=== PATIENT | female | born 1930 | race Caucasian/White ===

== ENCOUNTER 2017-11-25 15:04 | Inpatient (IN) | payer OTHER ==
[~2017-11-25] VITALS: Ht 165.1 cm; Wt 78.2 kg
--- NOTE | ~2017-11-25 | EKG ---
[address] [address] ELECTROCARDIOGRAM REPORT Name: LEISA BRADFORD Room #: 219-P ADM IN M.R.#: [id number] Admission: 11/25/17 Attend Phys: Zachery Bennett MD Discharge: Date of : [birth year] Report #: [id number] THIS REPORT FOR: //name// [facility] Test Date: 2017-11-25 Test Time: 17:02:13 Pat Name: LEISALAYO BRADFORD Department: Room: 219 Gender: F Certified Athletic Trainer: Maia TREJO : 1930 Requested By: Meaghan Reno Order Number: [id number] MD: Danny Younger Measurements Intervals [place] Rate: 61 P: 51 PA: 67 QRS: -54 QRSD: 176 T: 127 QT: 577 QTc: 582 Interpretive Statements Sinus rhythm with complete heart block Ventricular bigeminy Left bundle branch block No previous ECG available for comparison Electronically Signed On 11-25-2017 17:39:02 [employer]ILDL[employer] MANAGER by Danny Younger [email or web address] <ELECTRONICALLY SIGNED> By: Danny Younger MD, [facility] 11/25/17 1739 170 01 Danny Younger MD, [facility] /EPI
--- NOTE | ~2017-11-25 | 2DMMODE ---
[facility] [address] [place] [address] 2 D/M-MODE ECHOCARDIOGRAM Name: LEISA BRADFORD Room #: 219-P ADM IN M.R.#: [id number] Admission: 11/25/17 Attend Phys: Zachery Bennett Discharge: Date of : [birth year] Date of Service: 11/26/17 0908 Report #: [id number] THIS REPORT FOR: //name// APPROVED REPORT Study performed: 11/26/2017 07:42:14 EXAM: Comprehensive 2D, Doppler, and color-flow Echocardiogram Patient Location: Bedside Room #: 219 Status: routine BSA: 1.54 BP: 100/59 mmHg Other Information Study Quality: Good Indications Congestive Heart Failure Hypertension/HDD Complete heart block 2D Dimensions RVDd: 35.56 mm LVEF(%): 46.38 (>50%) IVSd: 8.51 (7-11mm) LVOT Diam: 19.83 (18-24mm) LVDd: 44.23 mm PWd: 9.61 (7-11mm) Ascending Ao: 38.24 (22-36mm) LVDs: 34.05 (25-40mm) Aortic Root: 31.34 mm IVC: 25.00 mm Chaudhari's LVEF: 46.38 % Volumes Left Atrial Volume (Systole) Single Plane 4CH: 54.54 mL Single Plane 2CH: 40.26 mL LA ESV Index: 33.00 mL/m2 Aortic Valve AoV Peak Nathaniel.: 2.45 m/s AO Peak Gr.: 24.08 mmHg LVOT Max P.64 mmHg AO Mean Gr.: 8.00 mmHg LVOT Mean P.39 mmHg AO V2 Mean: 1.25 m/s LVOT Max V: 0.95 m/s AO V2 VTI: 53.19 cm LVOT Mean V: 0.52 m/s FANNIE (VTI): 1.38 cm2 LVOT V1 VTI: 23.85 cm FANNIE Vmax: 1.20 cm2 [facility] [address] [place] [address] 2 D/M-MODE ECHOCARDIOGRAM Name: LEISA BRADFORD Room #: 219-P [facility].#: [id number] Admission: 11/25/17 Attend Phys: Zachery Bennett Discharge: Date of : [birth year] Date of Service: 11/26/17 0908 Report #: [id number] Vmax: 4.57 m/s SV (LVOT): 73.62 mL AI [place]: 1.67 m/s2 AI PHT: 793.37 ms Mitral Valve E/A Ratio: 0.5 MV Decel. Time: 128.84 ms MV E Max Nathaniel.: 0.53 m/s MV A Nathaniel.: 0.98 m/s MV PHT: 37.36 ms IVRT: 133.79 ms Pulmonary Valve PV Peak Nathaniel.: 0.92 m/s PV Peak Gr.: 3.35 mmHg Pulmonary Vein P Vein S: 0.29 m/s P Vein A: 0.42 m/s P Vein D: 0.36 m/s P Vein A Dur.: 179.9 msec P Vein S/D Ratio: 0.81 Tricuspid Valve TR Peak Nathaniel.: 2.93 m/s RAP Estimate: 10.00 mmHg TR Peak Gr.: 34.23 mmHg PA Pressure: 44.00 mmHg Left Ventricle The left ventricle is normal size. There is normal left ventricular wall thickness. Left ventricular systolic function is mildly decreased (complete heart block, HR 30) LVEF is 45%. Unable to assess Right Ventricle The right ventricle is normal size. The right ventricular systolic function is normal. Atria Left atrium is mildly dilated. Right atrium is mildly dilated. Aortic Valve The aortic valve is moderately calcified Moderate aortic regurgitation. There is mild valvular aortic stenosis. Calculated aortic valve area is 1.4 cm2 with maximum pressure gradient of 24 mmHg and mean pressure gradient of 8 mmHg. Mitral Valve [facility] [address] [place] [address] 2 D/M-MODE ECHOCARDIOGRAM Name: LEISA BRADFORD Room #: 219-P ADM IN M.R.#: [id number] Admission: 11/25/17 Attend Phys: Zachery Bennett Discharge: Date of : [birth year] Date of Service: 11/26/17 0908 Report #: [id number] Mitral valve leaflets are mildly thickened. Difficult to assess. Probably moderate insufficiency No evidence of mitral valve stenosis. Tricuspid Valve The tricuspid valve is normal in structure. Moderate tricuspid regurgitation. PAP is estimated at 44 mmHg. Pulmonic Valve The pulmonary valve is normal in structure. Moderate pulmonic regurgitation. Great Vessels The aortic root is normal in size. Ascending aorta is at the upper limits of normal at 3.8 cm IVC is dilated and collapses >50% with inspiration. Pericardium There is no pericardial effusion. <Conclusion> Left ventricular systolic function is mildly decreased (complete heart block, HR 30) LVEF is 45%. Both atria are dilated. The aortic valve is moderately calcified, mild valvular aortic stenosis. Moderate insufficiency Calculated aortic valve area is 1.4 cm2 with maximum pressure gradient of 24 mmHg and mean pressure gradient of 8 mmHg. Mild mitral leaflet thickening Difficult to assess. Probably moderate insufficiency There is no pericardial effusion. <ELECTRONICALLY SIGNED> By: Danny Youngre MD, FACC 11/26/17907 7 7 Danny Younger MD, FACC /INF
--- NOTE | ~2017-11-25 | H ---
[facility] [place] [address] HISTORY AND PHYSICAL Name: LEISA BRADFORD Room #: 219-P ADM IN M.R.#: [id number] Admission: 11/25/17 Attend Phys: Zachery Bennett MD Discharge: Date of : [birth year] Report #: [id number] THIS REPORT FOR: //name// CC: Florian Bennett DATE OF SERVICE: 11/25/2017 CHIEF COMPLAINT: Dizziness. HISTORY OF PRESENT ILLNESS: The patient is an 87-year-old female with history of diastolic congestive heart failure, who presented to the outside hospital Emergency Room for 3 days' duration of weakness, and dizziness this morning. The patient's evaluation revealed third degree AV block. The patient is transferred here for further evaluation and treatment. Since the patient was admitted to the floor, she has been feeling better. Currently, she is asymptomatic. She does not feel dizzy. She denies chest pain, shortness of breath, or other symptoms. Her heart rate now is 46. Blood pressure is stable. She is seen by formal waiter/waitress, and she is scheduled to have a pacemaker in the morning. PAST MEDICAL HISTORY: 1. Hypertension. 2. Hypertensive cardiomyopathy. 3. Congestive heart failure with diastolic dysfunction. 4. History of skin cancer. 5. Status post partial thyroidectomy, hyperthyroidism. Taking low dose methimazole. CURRENT MEDICATIONS: Reviewed and documented in the patient's chart. FAMILY HISTORY: Reviewed and not pertinent to the patient's current condition. SOCIAL HISTORY: The patient lives by herself. She does not smoke cigarettes and does not drink alcohol. REVIEW OF SYSTEMS: As above in HPI section, all others negative. PHYSICAL EXAMINATION: GENERAL: The patient is healthy-looking elderly female who is in no apparent distress. VITAL SIGNS: Blood pressure is 136/54, heart rate is 46, respiration is 24, temperature is 97.7, and oxygen saturation is 96%. HEENT: Pupils are equal. Eye movements are normal. The patient has anicteric sclerae. [address] [address] HISTORY AND PHYSICAL Name: LEISA BRADFORD Room #: [address] [place] [address] [place] ..#: [id number] Admission: 11/25/17 Attend Phys: Zachery Bennett MD Discharge: Date of : [birth year] Report #: [id number] NECK: Supple. Thyromegaly is not palpated. The patient has no JVD. She has no carotid bruits. RESPIRATORY: Respiratory sounds are slightly diminished bilaterally. She has no wheezes or crackles. CARDIOVASCULAR: The patient is bradycardic. She has no murmurs, gallops or rubs. GASTROINTESTINAL: Abdomen is soft, nondistended and nontender. Bowel sounds are present. She has no hepatomegaly or splenomegaly. MUSCULOSKELETAL: There is no edema, cyanosis or clubbing. NEUROLOGIC: Grossly intact. She is alert and oriented x 3. SKIN: The patient has no rash or no lesions. LABORATORY DATA: From outside hospital, CBC was normal. Basic metabolic profile showed slightly elevated creatinine at 1.46, and GFR of 33. Electrolytes were normal. ASSESSMENT AND PLAN: 1. Complete heart block. Skiagrapher is consulted. The patient is scheduled to have pacemaker in the morning. The patient is closely monitored on telemetry unit. Cardiology consultation is appreciated. 2. Hypertension. Acceptable control. Carvedilol is on hold. The patient is continued on amlodipine. 3. History of hyperthyroidism, status post partial thyroidectomy. The patient is on methimazole, 2.5 mg a day. Check TSH. 4. Deep venous thrombosis prophylaxis. SubQ Lovenox, after pacemaker placement tomorrow. <ELECTRONICALLY SIGNED> By: Zachery Bennett MD 11/27/17 0951 1657 1720 Zachery Bennett MD /nt
--- NOTE | ~2017-11-25 | P ---
[facility] [place] [address] PROCEDURE REPORT Name: LEISA BRADFORD [place] Room #: 219-P [facility] IN M.R.#: [id number] Admission: 11/25/17 Attend Phys: Zachery Bennett MD Discharge: 11/27/17 Date of : [birth year] Report #: [id number] THIS REPORT FOR: //name// CC: Florian Bennett PREOPERATIVE DIAGNOSIS: Heart block. POSTOPERATIVE DIAGNOSIS: Heart block. The patient is an 87-year-old who presents with increased fatigue and was noted to be in complete heart block. Beta blockers were stopped and this did not resolve and therefore she is here for dual chamber pacemaker implantation. ANESTHESIA: The patient with MAC anesthesia with no anesthesia related complications. DESCRIPTION OF PROCEDURE: The patient underwent informed consent. We discussed the details of the procedure including the risks, which include but not limited to bleeding, infection, vascular damage, cardiac perforation, pneumothorax. She understood these risks and is willing to proceed. As such, she was brought to the EP laboratory in a fasting and sedated state and prepped and draped in sterile fashion and underwent venography showing patency of the left axillary vein. She did receive IV vancomycin prior to initiation of the procedure. Next, lidocaine was injected below the level of clavicle, incision was made, pocket was created over the prepectoral fascia and access was obtained twice to the left axillary vein using the extrathoracic approach with sheaths positioned using the modified Seldinger technique. Next, leads were positioned in the right ventricular apex and right atrial appendage both with adequate pacing and sensing thresholds. The leads were sutured to the prepectoral fascia and the device was connected to the pocket, was irrigated and then the pocket was sutured using 2-0 for the deep layer, 3-0 for the mid layer and 4-0 for the subcuticular layer. Surgical glue was placed to the outer skin layer. The implanted pacemaker is a [employer] model #HH1886, serial #[id number]. Atrial lead was a [employer] model #2088TC, 52 cm, serial #[id number] with a P-wave of 1.8 millivolts, pacing impedance of 480 ohms and a pacing threshold of 1.25 volts at 0.4 milliseconds. The RV lead was a [employer] model #2088TC, 58 cm, serial #[id number]. This lead demonstrated no underlying R waves, pacing impedance of 550 ohms and a pacing threshold of 0.5 volts at 0.4 milliseconds. The device was programmed to the DDD 60-120 mode. CONCLUSIONS: [facility] [address] [address] PROCEDURE REPORT Name: LEISA BRADFORD Room #: 219-P [facility] IN M.R.#: [id number] Admission: 11/25/17 Attend Phys: Zachery Bennett MD Discharge: 11/27/17 Date of : [birth year] Report #: [id number] 1. Successful dual-chamber pacemaker implantation. 2. Satisfactory atrial and ventricular pacing and sensing thresholds. <ELECTRONICALLY SIGNED> By: Adrian Amador MD 12/07/17 1622 1226 09 Adrian Amador MD /nt
[~2017-11-25 15:04] MED LIST: ASPIR 8181 M1 PO; B12INJ IM; BIOTIN-D1 GM PO; COREG6.25 MG PO; COZAAR 50 MG TA50 M1 PO; LASIX 40 MG TAB40 M2 PO; METHIMAZOLE5 MG PO; NORVASC5 MG PO; POTASSIUM20 PO; PRILOSEC20 MG PO; VITAMIN D1000 UNIT PO
[2017-11-25 16:00] VITALS: BP 152/68
[2017-11-25 16:25] VITALS: BP 136/54
[2017-11-25] MEDS ORDERED: FOLIC ACID1 MG PO (17:51)
[2017-11-25] MEDS ORDERED: CALCIUM 500 +1 EAC5 PO (17:53)
[2017-11-25 20:26] VITALS: BP 136/63
[2017-11-26] VITALS (9 sets, daily range): BP systolic 100–150; BP diastolic 46–87
[2017-11-26 03:54] LABS: ABSOLUTE NEUTROPHILS 2.2 thou/uL (1.4-8.2); BASOPHILS 0.7 % (0.0-2.0); EOSINOPHILS 2.8 % (0.0-3.0); HEMATOCRIT 32.9 % (37.0-47.0); LYMPHOCYTES 33.2 % (24.0-44.0); MCHC 33.6 g/dL (28.0-37.0); MCV 92.5 fL (80.0-100.0); MONOCYTES 11.1 % (1.0-8.0); PLATELET COUNT 154 thou/uL (150-400); POLYS 52.2 % (36.0-66.0); RBC 3.56 mil/uL (4.20-5.00); RDW 14.7 % (10.5-14.5); WBC 4.3 thou/uL (4.0-11.0)
[2017-11-26 04:00] LABS: INR 1.1; PROTIME 10.9 Seconds (9.3-11.4)
[2017-11-26 04:05] LABS: CALCIUM 8.7 mg/dL (8.5-10.1); CREATININE 1.4 mg/dL (0.6-1.0); POTASSIUM 3.9 mmol/L (3.5-5.1)
[2017-11-27] VITALS: BP 122/68
[2017-11-27 04:30] VITALS: BP 120/67
[2017-11-27 07:55] VITALS: BP 140/70
[2017-11-27] MEDS ORDERED: ACETAMINOPHEN325 M1 PO (10:12)
[2017-11-27] MEDS ORDERED: HYDROCODONE-AP1 EAC6 PO (10:12)
[2017-11-27 10:31] VITALS: BP 140/70
== END 2017-11-27 14:20 | disposition home or self-care (01) | DRG 242 ==
LOC: 2N 15:04
PROVIDERS: Nurse Practitioner Gerontology
PROC: 0JH606Z Insertion of Pacemaker, Dual Chamber into Chest Subcutaneous Tissue and Fascia, Open Approach (ICD-10-PCS; principal; 2017-11-26)
PROC: 02HK3JZ Insertion of Pacemaker Lead into Right Ventricle, Percutaneous Approach (ICD-10-PCS; principal; 2017-11-26)
PROC: 02H63JZ Insertion of Pacemaker Lead into Right Atrium, Percutaneous Approach (ICD-10-PCS; principal; 2017-11-26)
DX: I44.2 Atrioventricular block, complete (principal); E43 Unspecified severe protein-calorie malnutrition; I50.32 Chronic diastolic (congestive) heart failure; I11.0 Hypertensive heart disease with heart failure; M06.9 Rheumatoid arthritis, unspecified; E89.0 Postprocedural hypothyroidism; Z88.1 Allergy status to other antibiotic agents; Z88.2 Allergy status to sulfonamides; Z88.8 Allergy status to other drugs, medicaments and biological substances; Z85.828 Personal history of other malignant neoplasm of skin; Z86.718 Personal history of other venous thrombosis and embolism; Z82.49 Family history of ischemic heart disease and other diseases of the circulatory system
CPT/HCPCS: 10081; 62110; 62900; 70005